=== PATIENT | female | born 1980 | race Caucasian/White ===

== ENCOUNTER 2022-02-27 05:38 | Emergency (ER) | payer MEDICAID, SELFPAY ==
[2022-02-27 05:44] VITALS: BP 114/96; PULSE 95; RESP 18; TEMP 36.7; O2SAT 99
--- NOTE | 2022-02-27 06:13 | ED.GENADUL_ITS ---
Discharge Plan Disposition Patient Disposition: HOME Condition: Stable Discharge Details Clinical Impression: Rash Primary Care Provider: Delfina Conner ED Provider: Grover He Home Meds and New Rx's Prescriptions: New prednisone 20 mg tablet 40 mg PO DAILY Qty: 8 0RF Rx Instructions: start 02/28/22 Continued Vyvanse 70 mg Capsule 70 mg PO DAILY Discharge Instructions Instructions: Acute Rash (ED) Additional Instructions: Please monitor your rash and take photos daily. Please follow-up with dermatology. Call today to schedule appointment. Please contact your primary care physician to arrange follow-up. Please take prednisone as prescribed. Return to the ER immediately for any worsening or new concerning symptoms. Referrals: Delfina Conner [Primary Care Provider] - Shiv Sanchez MD [MD CONSULTING PHYSICIAN] - Discharge Data Discharge Date/Time-TO BE ENTERED AT DEPARTURE: 02/27/22 07:18 Medical Decision Making 41-year-old female with pruritic rash, sparsely distributed on upper extremities and lower extremities bilaterally. Lesions have central vesicle and surrounding erythema or petechiae. Concern for vasculitis versus less likely insect bite versus consider syphilis or viral exanthem. Screening labs including CBC, ESR, CRP, and CMP were reviewed. C-reactive protein is elevated 0.52. ESR normal as is his CBC. I have sent RPR. Given degree of itching and not responding to Benadryl, plan to initiate treatment with prednisone burst. I recommended that patient monitor rash, take daily photos and followup with dermatology. HPI General Mode of arrival: ambulatory . Date/Time Provider Initiated Documentation: 02/27/22 06:01 . Limitations to Documentation: no limitations . Information obtained by: patient . HPI Narrative: 41-year-old female presents with chief complaint of rash. Patient notes rash started approximately 4 days ago. She states she woke up with rash on her arms. Rash now involves arms bilaterally as well as lower legs bilaterally and face and scalp. Rash is itchy and she has been scratching it. Patient is concerned for bug bites as she notices these rashes more in the morning. Her significant other has not had any bites or rashes. She has no associated fever. No history of STDs. Patient has no mucosal lesions. Patient does smoke. She does use marijuana. Denies other drug use. No history of IV drug use. Patient notes that she did try using Benadryl couple days ago and symptoms seem to worsen. She states that lesions felt like it was on fire after taking Benadryl. Related Data Home Medications Medication Instructions Recorded Confirmed lisdexamfetamine 70 mg capsule 70 mg PO DAILY 02/27/22 02/27/22 (Vyvanse) prednisone 20 mg tablet 40 mg PO DAILY #8 tabs 02/27/22 Previous Rx's Medication Instructions Recorded prednisone 20 mg tablet 40 mg PO DAILY #8 tabs 02/27/22 Allergies Allergy/AdvReac Type Severity Reaction Status Date / Time No Known Allergies Allergy Unverified 02/27/22 06:24 General Stated Complaint: RashLesion SHILPI: 4 Review of Systems All systems reviewed & are unremarkable except as noted in HPI and below Constitutional Constitutional: Denies fever(s) Respiratory Respiratory: Denies cough Integumentary/Breasts Skin/Breast: Reports as per HPI PFSH All Active Problems (Updated 02/27/22 @ 07:08 by Grover He MD) Rash (Acute) Social History Smoking/Tobacco Use Status: Current every day Tobacco Type: cigarettes Smoking risk assessment performed?: Yes Alcohol Intake: current Alcohol Intake frequency: a few times a month Substance use type: does not use Do you feel safe at home: No Do you feel safe in your relationship?: No Exam Const General: cooperative and no acute distress HENMT Mouth: oral mucosae normal and moist mucous membranes Eyes Conjunctivae: normal conjunctivae Sclera: normal sclerae Resp Auscultation: clear to auscultation bilaterally, no rales, no rhonchi and no wheezes Cardio Rate: regular rate and not tachycardic Rhythm: regular rhythm Heart Sounds: no murmurs GI Palpation: soft, not firm, no guarding, no masses, not rigid and nontender Skin Rashes: rashes noted Other: Sparsely distributed circular rash on upper extremities and distal lower extremities as well as few lesions on face. Lesions have central vesicle with surrounding erythema. Some vesicles are ruptured. Some areas have surrounding petechial rash. Neuro General: patient alert, patient awake and tone normal Extrem General: no edema Course Vital Signs Vital signs: Vital Signs Temperature 36.7 C 02/27/22 05:44 Pulse 95 H 02/27/22 05:44 Respiratory Rate 18 02/27/22 05:44 Blood Pressure 114/96 H 02/27/22 05:44 Pulse Oximetry 99 02/27/22 05:44 Temperature 36.7 C 02/27/22 05:44 Pulse 95 H 02/27/22 05:44 Respiratory Rate 18 02/27/22 05:44 Blood Pressure 114/96 H 02/27/22 05:44 Blood Pressure Position Sitting 02/27/22 05:44 Pulse Oximetry 99 02/27/22 05:44
[2022-02-27 06:23] LABS: Abs Immature Grans 0.01 10^3/uL (0.0-0.06); Absolute Basophil Count 0.05 10^3/uL (0.0-0.2); Absolute Eosinophil Count 0.07 10^3/uL (0.0-0.7); Absolute Lymphocyte Count 3.28 10^3/uL (1.2-3.4); Absolute Monocyte Count 0.59 10^3/uL (0.1-0.8); Basophils % 0.7; HCT 40.6 % (36.0-46.0); HGB 13.5 g/dL (11.2-15.7); Immature Grans % 0.1; MCHC 33.3 % (32.0-36.0); MCV 90 fL (80-95); MPV 8.6 fL (8.0-11.0); Monocytes % 8.8; Neutrophils % 40.4; Platelet Count 264 10^3/uL (130-400); RDW 12.8 % (11.7-14.6); RDW-SD 42.2 fL
[2022-02-27] MEDS: predniSONE 20 MG TAB 60 MG PO (06:24)
[2022-02-27 06:26] LABS: ESR 12 mm/hr (0-20)
[2022-02-27 06:38] LABS: ALT 18 U/L (14-59); AST 17 U/L (15-37); Albumin 3.8 g/dL (3.4-5.0); Alkaline Phosphatase 90 U/L (46-116); Anion Gap 9.5 mmol/L (3-11); BUN 10 mg/dL (7-18); Bilirubin, Total 0.8 mg/dL (0.2-1.0); C-Reactive Protein 0.52 mg/dL (0.0-0.3); CO2 27.5 mmol/L (21.0-32.0); CREATININE 0.8 mg/dL (0.55-1.02); Calcium 8.3 mg/dL (8.5-10.1); Chloride 106 mmol/L (98-107); Glucose 103 mg/dL (74-106); Potassium 3.6 mmol/L (3.5-5.1); Sodium 143 mmol/L (136-145); Total Protein 6.9 g/dL (6.4-8.2)
--- NOTE | 2022-02-27 07:11 | NUR.NOTE ---
Nursing Note: PT INFO GIVEN TO CARE MANAGEMENT TO ESTABLISH FOLLOW UP WITH DERMATOLOGY [facility]KE FOR RASH. ABEBE, ED
--- NOTE | 2022-03-02 09:34 | PDOC.ERCMACT ---
- If Service Date Differs Date of service: 03/02/22 Time of Service: 09:34 Care Management Activity Note Piedad is seen in the ED for a pruritic rash. At the request of ED provider, CM coordinates a referral to Shiv Sanchez MD, [facility], to assist Piedad in obtaining a follow up appointment for further evaluation and treatment.
[2022-03-02 11:16] LABS: Syphilis Serology (RPR) Negative (Negative)
== END 2022-02-27 07:18 | disposition home or self-care (01) ==
PROVIDERS: Emergency Provider Student in an Organized Health Care Education/Training Program; PCP Nurse Practitioner Family
DX: R21 Rash and other nonspecific skin eruption (principal)
CPT/HCPCS: 80053; 85652; 99283; 85025; 86140; 86592; J7512

== ENCOUNTER 2022-03-09 11:03 | Emergency (ER) | payer MEDICAID, SELFPAY ==
[2022-03-09 11:21] VITALS: BP 101/71; PULSE 91; RESP 16; TEMP 36.4; O2SAT 99
--- NOTE | 2022-03-09 11:51 | ED.GENADUL_ITS ---
Discharge Plan Disposition Patient Disposition: HOME Condition: Stable Discharge Details Clinical Impression: Rash Primary Care Provider: Delfina Conner ED Provider: Zainab He Home Meds and New Rx's Prescriptions: Continued Vyvanse 70 mg Capsule 70 mg PO DAILY Discharge Instructions Instructions: Acute Rash (ED) Additional Instructions: Please return immediately to the emergency department if you develop any new or worsening symptoms, if your condition does not improve as expected, or if you become otherwise concerned. 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 Referrals: Delfina Conner [Primary Care Provider] - Discharge Data Discharge Date/Time-TO BE ENTERED AT DEPARTURE: 03/09/22 14:30 Medical Decision Making Piedad Nuñez is a 41-year-old woman without reported history of medical problems presenting to emergency department with rash. Patient reports that on February 22 she moved into a new living situation, staying at an extended stay motel. Patient reports that after spending 1 night there she developed an itchy rash on her skin. She reports that she has been staying there since, and blisters have continued to heal and then appear. She was seen here for this on 02/27/2022, where she had blood work done and was referred to follow-up with outpatient dermatology. Patient reports that she contacted dermatology in [place], who stated that they had no appointments until September. Patient states that blisters are mostly itchy, somewhat painful. She reports that she has had 1 blister on the side of her palm and one on the plantar surface of her fifth toe, no other rash on palms or soles. She denies any involvement of her lips, mouth, throat, nose, or eyes. She denies any other pain. She reports intermittent subjective fever and dry cough. She denies shortness of breath, vomiting, diarrhea, other rash, numbness, weakness. She denies any other new exposures or medication changes. Is not vaccinated for COVID. Patient reports that she is concerned that her symptoms may be due to to black mold at the facility she is staying at. Pt is very well and non-toxic appearing. Scattered vesicles/bullae without mucous membrane involvement. Concern for autoimmune disease, paraneoplastic disease, other. Possible covid, pna. Exam/hx at this time not c/w SJS, TEN, sepsis. Plan for screening labs, UA, urine test, COVID swab, chest x- ray, dermatology consultation. Labs reviewed and non-diagnostic. Discussed Pt presentation and results with dermatology on-call at [facility], who states symptoms possibly c/w bullous pemphigoid or other autoimmune process, recommends outpt f/u with their office for biopsy, further eval. I relayed this to Pt who is amenable to the plan. Pt placed on care management list for outpt f/u at [facility] dermatology. I had a discussion with Patient regarding return to emergency department precautions, home care, and importance of outpatient follow-up. Pt verbalizes understanding of the plan and is amenable. Patient discharged to home with clear plan for outpatient follow- up. All questions were answered. Disposition decision was made weighing the risks and benefits of hospitalization versus outpatient treatment, the risk for further decompensation, and the patient's wishes. Medical Records Medical records reviewed: Yes I reviewed the patient's medical records. Imaging Data Radiologic Study: Attestation: I personally reviewed and interpreted this imaging study as follows: Radiologist's impression: EXAM:? XR PORTABLE CHEST AP CLINICAL HISTORY:? cough TECHNIQUE:? 2D digital imaging was performed of the chest. One image was obtained.? An AP view was obtained. COMPARISON:? No exams were available for comparison FINDINGS: MEDIASTINUM: Normal.? HEART: Normal. PULMONARY VASCULATURE: Normal. LUNGS: Clear.? PLEURAL SPACE: No pleural effusion or pneumothorax. BONE:Within normal limits for the patient's age. OTHER FINDINGS:Normal.? IMPRESSION: No acute pulmonary findings. Lab Data Labs: Laboratory Tests Range/Units 03/09/22 03/09/22 03/09/22 12:00 12:30 12:30 WBC (4.4-10.8) 10^3/uL RBC (3.93-5.22) 10^6/uL Hgb (11.2-15.7) g/dL Hct (36.0-46.0) % MCV (80-95) fL MCH (27.0-33.0) pg MCHC (32.0-36.0) % RDW (11.7-14.6) % Plt Count (130-400) 10^3/uL MPV (8.0-11.0) fL Immature Gran % Neutrophils % Lymphocytes % Monocytes % Eosinophils % Basophils % Nucleated RBC % (0.0-0.3) % Absolute Neutrophils (1.2-6.7) 10^3/uL Absolute Lymphocytes (1.2-3.4) 10^3/uL Absolute Monocytes (0.1-0.8) 10^3/uL Absolute Eosinophils (0.0-0.7) 10^3/uL Absolute Basophils (0.0-0.2) 10^3/uL ESR (0-20) mm/hr 16 Sodium (136-145) mmol/L 140 Potassium (3.5-5.1) mmol/L 4.0 Chloride (98-107) mmol/L 105 Carbon Dioxide (21.0-32.0) mmol/L 26.6 Anion Gap (3-11) mmol/L 8.4 BUN (7-18) mg/dL 9 Creatinine (0.55-1.02) mg/dL 0.8 Estimated GFR/1.73 m2 (mL/min/1.73m2) >= 60.00 Glucose (74-106) mg/dL 115 H Calcium (8.5-10.1) mg/dL 8.4 L Total Bilirubin (0.2-1.0) mg/dL 0.5 AST (15-37) U/L 20 ALT (14-59) U/L 24 Alkaline Phosphatase (46-116) U/L 91 C-Reactive Protein (0.0-0.3) mg/dL 0.26 Total Protein (6.4-8.2) g/dL 7.5 Albumin (3.4-5.0) g/dL 3.7 TSH (0.36-3.74) uIU/mL 1.44 Urine Color (Yellow) Urine Clarity (Clear) Urine pH (5-8) Ur Specific [place] (1.005-1.025) Urine Protein (Negative) mg/dL Urine Ketones (Negative) mg/dL Urine Blood (Negative) Urine Nitrite (Negative) Urine Bilirubin (Negative) Urine Urobilinogen (Up TO 0.2) EU/dL Ur Leukocyte Esterase (Negative) Urine Glucose (Negative) mg/dL COVID-19 Source Not Applicable SARS-CoV-2 (PCR) (Negative) Negative Influenza Type A (PCR) (Negative) Negative Influenza Type B (PCR) (Negative) Negative RSV (PCR) (Negative) Negative Range/Units 03/09/22 03/09/22 12:30 14:00 WBC (4.4-10.8) 10^3/uL 8.77 RBC (3.93-5.22) 10^6/uL 4.88 Hgb (11.2-15.7) g/dL 14.6 Hct (36.0-46.0) % 44.7 MCV (80-95) fL 92 MCH (27.0-33.0) pg 29.9 MCHC (32.0-36.0) % 32.7 RDW (11.7-14.6) % 13.3 Plt Count (130-400) 10^3/uL 337 MPV (8.0-11.0) fL 9.2 Immature Gran % 0.3 Neutrophils % 48.4 Lymphocytes % 41.5 Monocytes % 7.3 Eosinophils % 1.8 Basophils % 0.7 Nucleated RBC % (0.0-0.3) % 0.0 Absolute Neutrophils (1.2-6.7) 10^3/uL 4.24 Absolute Lymphocytes (1.2-3.4) 10^3/uL 3.64 H Absolute Monocytes (0.1-0.8) 10^3/uL 0.64 Absolute Eosinophils (0.0-0.7) 10^3/uL 0.16 Absolute Basophils (0.0-0.2) 10^3/uL 0.06 ESR (0-20) mm/hr Sodium (136-145) mmol/L Potassium (3.5-5.1) mmol/L Chloride (98-107) mmol/L Carbon Dioxide (21.0-32.0) mmol/L Anion Gap (3-11) mmol/L BUN (7-18) mg/dL Creatinine (0.55-1.02) mg/dL Estimated GFR/1.73 m2 (mL/min/1.73m2) Glucose (74-106) mg/dL Calcium (8.5-10.1) mg/dL Total Bilirubin (0.2-1.0) mg/dL AST (15-37) U/L ALT (14-59) U/L Alkaline Phosphatase (46-116) U/L C-Reactive Protein (0.0-0.3) mg/dL Total Protein (6.4-8.2) g/dL Albumin (3.4-5.0) g/dL TSH (0.36-3.74) uIU/mL Urine Color (Yellow) Yellow Urine Clarity (Clear) Clear Urine pH (5-8) 6.0 Ur Specific [place] (1.005-1.025) >= 1.030 H Urine Protein (Negative) mg/dL Negative Urine Ketones (Negative) mg/dL Negative Urine Blood (Negative) Negative Urine Nitrite (Negative) Negative Urine Bilirubin (Negative) Negative Urine Urobilinogen (Up TO 0.2) EU/dL 0.2 Ur Leukocyte Esterase (Negative) Negative Urine Glucose (Negative) mg/dL Negative COVID-19 Source SARS-CoV-2 (PCR) (Negative) Influenza Type A (PCR) (Negative) Influenza Type B (PCR) (Negative) RSV (PCR) (Negative) HPI General Date/Time Provider Initiated Documentation: 03/09/22 11:30 . Limitations to Documentation: no limitations . Information obtained by: patient, family, RN notes reviewed and old records reviewed . HPI Narrative: Piedad Nuñez is a 41-year-old woman without reported history of medical problems presenting to emergency department with rash. Patient reports that on February 22 she moved into a new living situation, staying at an extended stay motel. Patient reports that after spending 1 night there she developed an itchy rash on her skin. She reports that she has been staying there since, and blisters have continued to heal and then appear. She was seen here for this on 02/27/2022, where she had blood work done and was referred to follow-up with outpatient dermatology. Patient reports that she contacted dermatology in [place], who stated that they had no appointments until September. Patient states that blisters are mostly itchy, somewhat painful. She reports that she has had 1 blister on the side of her palm and one on the plantar surface of her fifth toe, no other rash on palms or soles. She denies any involvement of her lips, mouth, throat, nose, or eyes. She denies any other pain. She reports intermittent subjective fever and dry cough. She denies shortness of breath, vomiting, diarrhea, other rash, numbness, weakness. She denies any other new exposures or medication changes. Is not vaccinated for COVID. Patient reports that she is concerned that her symptoms may be due to to black mold at the facility she is staying at. Related Data Home Medications Medication Instructions Recorded Confirmed lisdexamfetamine 70 mg capsule 70 mg PO DAILY 02/27/22 03/09/22 (Vyvanse) Allergies Allergy/AdvReac Type Severity Reaction Status Date / Time No Known Allergies Allergy Unverified 02/27/22 06:24 General Stated Complaint: GenMedical SHILPI: 4 Review of Systems Narrative: Constitutional: reports intermittent subjective fevers Eyes: denies eye pain ENT: denies ear pain, dental pain, sore throat Cardiovascular: denies chest pain, edema Respiratory: denies SOB, reports dry cough GI: denies abdominal pain, vomiting, diarrhea : denies flank pain MSK: denies back pain, neck pain, arthralgias, myalgias Skin: reports rash Neuro: denies headaches, numbness, weakness PFSH All Active Problems (Updated 03/09/22 @ 14:24 by Zainab He MD) Rash (Acute) Social History Smoking/Tobacco Use Status: Current every day Tobacco Type: cigarettes Smoking risk assessment performed?: Yes Alcohol Intake: current Alcohol Intake frequency: a few times a month Drug use: Daily Substance use type: marijuana Do you feel safe at home: Yes Do you feel safe in your relationship?: Yes Exam Narrative Exam Narrative: Constitutional: well and [id number], pleasant, conversing normally HENT: head atraumatic/normocephalic/normal inspection, mucous membranes moist, no lip or nares lesions, no intra-oral lesions Eyes: conjunctiva normal, sclera normal, pupils 3mm b/l Neck: no stridor, normal ROM, trachea midline Resp: normal work of breathing, speaking in full sentences Cardio: normal rate, normal rhythm Skin: warm, dry, normal color, scattered serous vesicles/bullae with outer erythema 0.5cm - 2cm diameter over forearms, legs, various stages of healing. Healing lesion plantar left toe and margin of palm, no other lesions to palms/soles. Nikolsky's sign negative. Neuro: alert, not altered, grossly non-focal, normal tone Ext: no edema Psych: normal mood, normal affect, normal behavior Course Vital Signs Vital signs: Vital Signs Temperature 36.4 C L 03/09/22 11:21 Pulse 91 H 03/09/22 11:21 Respiratory Rate 16 03/09/22 11:21 Blood Pressure 101/71 03/09/22 11:21 Pulse Oximetry 99 03/09/22 11:21 Temperature 36.4 C L 03/09/22 11:21 Temperature Source Temporal Artery Scan 03/09/22 11:21 Pulse 91 H 03/09/22 11:21 Respiratory Rate 16 03/09/22 11:21 Blood Pressure 101/71 03/09/22 11:21 Blood Pressure Position Sitting 03/09/22 11:21 Pulse Oximetry 99 03/09/22 11:21 Oxygen Delivery Method Room Air 03/09/22 11:21 Oxygen Flow Rate 0 03/09/22 11:21 Pain Level 2 03/09/22 11:21
[2022-03-09 12:56] LABS: COVID-19 PCR Negative (Negative); Influenza A PCR Negative (Negative); Influenza B PCR Negative (Negative); RSV PCR Negative (Negative)
[2022-03-09 13:11] LABS: Abs Immature Grans 0.03 10^3/uL (0.0-0.06); Absolute Basophil Count 0.06 10^3/uL (0.0-0.2); Absolute Eosinophil Count 0.16 10^3/uL (0.0-0.7); Absolute Lymphocyte Count 3.64 10^3/uL (1.2-3.4); Absolute Monocyte Count 0.64 10^3/uL (0.1-0.8); Absolute Neutrophil Count 4.24 10^3/uL (1.2-6.7); Basophils % 0.7; Eosinophils % 1.8; HCT 44.7 % (36.0-46.0); HGB 14.6 g/dL (11.2-15.7); Immature Grans % 0.3; Lymphocytes % 41.5; MCH 29.9 pg (27.0-33.0); MCHC 32.7 % (32.0-36.0); MCV 92 fL (80-95); MPV 9.2 fL (8.0-11.0); Monocytes % 7.3; Neutrophils % 48.4; Platelet Count 337 10^3/uL (130-400); RBC 4.88 10^6/uL (3.93-5.22); RDW 13.3 % (11.7-14.6); RDW-SD 45.1 fL; WBC 8.77 10^3/uL (4.4-10.8)
[2022-03-09 13:15] LABS: ESR 16 mm/hr (0-20)
[2022-03-09 13:42] LABS: ALT 24 U/L (14-59); AST 20 U/L (15-37); Albumin 3.7 g/dL (3.4-5.0); Alkaline Phosphatase 91 U/L (46-116); Anion Gap 8.4 mmol/L (3-11); BUN 9 mg/dL (7-18); Bilirubin, Total 0.5 mg/dL (0.2-1.0); C-Reactive Protein 0.26 mg/dL (0.0-0.3); CO2 26.6 mmol/L (21.0-32.0); CREATININE 0.8 mg/dL (0.55-1.02); Calcium 8.4 mg/dL (8.5-10.1); Chloride 105 mmol/L (98-107); Glucose 115 mg/dL (74-106); Sodium 140 mmol/L (136-145); TSH (W/Ref FT4) 1.44 uIU/mL (0.36-3.74); Total Protein 7.5 g/dL (6.4-8.2)
--- NOTE | 2022-03-09 13:46 | DI.RAD_ITS ---
Exam(s) XR PORTABLE CHEST AP EXAM: XR PORTABLE CHEST AP CLINICAL HISTORY: cough TECHNIQUE: 2D digital imaging was performed of the chest. One image was obtained. An AP view was ob tained. COMPARISON: No exams were available for comparison FINDINGS: MEDIASTINUM: Normal. HEART: Normal. PULMONARY VASCULATURE: Normal. LUNGS: Clear. PLEURAL SPACE: No pleural effusion or pneumothorax. BONE:Within normal limits for the patient's age. OTHER FINDINGS:Normal. IMPRESSION: No acute pulmonary findings. DATA REPOSITORY: RADIATION DOSE DELIVERED:
[2022-03-09 14:12] VITALS: RESP 16
[2022-03-09 14:12] LABS: Bilirubin Negative (Negative); Blood Negative (Negative); Clarity Clear (Clear); Glucose Negative (Negative); Ketones Negative (Negative); Leukocyte Esterase Negative (Negative); Nitrite Negative (Negative); Specific Gravity >= 1.030 (1.005-1.025); Urobilinogen 0.2 EU/dL (Up TO 0.2)
--- NOTE | 2022-03-09 16:05 | NUR.NOTE ---
Nursing Note: Referral given to Care Management for Dermatology [facility], biopsy and possible bullous pemphoid, MIKE.
--- NOTE | 2022-03-10 11:39 | PDOC.ERCMACT ---
- If Service Date Differs Date of service: 03/10/22 Time of Service: 11:39 Care Management Activity Note Piedad is seen in the ED for a rash and blisters. At the request of ED provider, GOLDEN coordinates a referral to [facility] to assist Piedad in obtaining an appointment amish for further evaluation and treatment of the rash. She has [place] Medicaid for insurance.
== END 2022-03-09 14:30 | disposition home or self-care (01) ==
PROVIDERS: Emergency Provider Student in an Organized Health Care Education/Training Program; PCP Nurse Practitioner Family
DX: R21 Rash and other nonspecific skin eruption (principal); R05.1 Acute cough
CPT/HCPCS: 36415; 80053; 81025; 85652; 87637; 99283; 71045; 81003; 84443; 85025; 86140